=== PATIENT | female | born 1980 | race Caucasian/White ===

== ENCOUNTER 2016-04-05 00:07 | Inpatient (IN) | payer OTHER ==
[~2016-04-05] VITALS: Ht 170.2 cm; Wt 71.7 kg
[2016-04-06 01:26] VITALS: BP 144/86; PULSE 100; TEMP 98.5
[2016-04-06 03:08] LABS: INR 1.1 (0.8-3.0); PROTHROMBIN TIME 12.1 SECONDS (9.7-12.8)
[2016-04-06 03:09] LABS: BASO % 0.4 % (0.0-2.0); EOS # 0.1 (0.0-0.7); EOS % 0.9 % (0-4.0); GRAN # 7.4 (1.4-6.5); GRAN % 69.3 % (42.2-75.2); HEMATOCRIT 36.3 % (37.0-47.0); HEMOGLOBIN 11.7 g/dl (12.5-16.0); LYMPH # 2.2 (1.2-3.4); LYMPH % 20.5 % (20.0-51.0); MEAN CELL VOLUME 91 fl (80.0-100.0); MEAN CORPUSCULAR HEMOGLOBIN 29 pg (27.0-31.0); MEAN CORPUSCULAR HGB CONC 32 g/dl (33.0-37.0); MEAN PLATELET VOLUME 9.5 fl (7.4-10.4); MONO # 0.9 (0.1-0.6); MONO % 8.5 % (1.7-9.3); PLATELET COUNT 274 K/mm3 (130-400); RED BLOOD COUNT 4.01 M/mm3 (4.10-5.30); REDCELL DISTRIBUTION WIDTH-CV 13.9 % (11.5-14.5); WHITE BLOOD COUNT 10.6 K/mm3 (4.8-10.8)
[2016-04-06 03:17] LABS: ADJUSTED CALCIUM 9.3 mg/dL (8.4-10.2); BILIRUBIN,TOTAL 0.6 mg/dL (0.0-1.0); CALCIUM 9.3 mg/dL (8.4-10.2); CREATININE, serum 0.49 mg/dL (0.52-1.25); POTASSIUM 3.5 mmol/L (3.4-5.0); TOTAL PROTEIN 7.2 gm/dL (6.4-8.2)
[2016-04-06] MEDS ORDERED: SYNTHROID0.075 MG/T (03:38)
[2016-04-06] MEDS ORDERED: ZOCOR 10MG10 MG PO (03:39)
[2016-04-06] MEDS ORDERED: PROZAC40 MG PO (03:40)
[2016-04-06] MEDS ORDERED: TRESIBA FL100 UNIT/1 SQ (04:40)
[2016-04-06 06:21] VITALS: BP 134/65; PULSE 87; TEMP 98.5
[2016-04-06 09:47] VITALS: BP 130/66; PULSE 98; TEMP 98.6
[2016-04-06 13:58] VITALS: BP 125/69; PULSE 83; TEMP 98.4
[2016-04-06 17:24] VITALS: BP 128/72; PULSE 83; TEMP 98.2
[2016-04-06 21:37] VITALS: BP 134/81; PULSE 92; TEMP 97.8
[2016-04-07] VITALS (11 sets, daily range): BP systolic 107–131; BP diastolic 57–80; PULSE 83–106; TEMP 97.7–99.8
[2016-04-08 02:03] VITALS: BP 135/82; PULSE 104; TEMP 99.2
[2016-04-08 05:15] VITALS: BP 135/81; PULSE 96; TEMP 98.3
[2016-04-08 07:28] LABS: MEAN CELL VOLUME 92 fl (80.0-100.0); MEAN CORPUSCULAR HGB CONC 32 g/dl (33.0-37.0); MEAN PLATELET VOLUME 10.2 fl (7.4-10.4); PLATELET COUNT 221 K/mm3 (130-400); RED BLOOD COUNT 3.03 M/mm3 (4.10-5.30); REDCELL DISTRIBUTION WIDTH-CV 14.1 % (11.5-14.5); WHITE BLOOD COUNT 6.5 K/mm3 (4.8-10.8)
[2016-04-08 07:34] LABS: HEMATOCRIT 27.8 % (37.0-47.0); HEMOGLOBIN 8.8 g/dl (12.5-16.0); MEAN CORPUSCULAR HEMOGLOBIN 29 pg (27.0-31.0)
[2016-04-08 07:41] LABS: CALCIUM 8.7 mg/dL (8.4-10.2); CREATININE, serum 0.44 mg/dL (0.52-1.25); POTASSIUM 3.4 mmol/L (3.4-5.0)
[2016-04-08] MEDS ORDERED: NORCO 325 MG-7.1 TAB PO (12:12)
== END 2016-04-08 13:25 | disposition home or self-care (01) | DRG 494 ==
LOC: SURG 00:07
PROVIDERS: Internal Medicine; Orthopaedic Surgery
PROC: 0QSH06Z Reposition Left Tibia with Intramedullary Internal Fixation Device, Open Approach (ICD-10-PCS; principal; 2016-04-07 10:15)
DX: S82.252A Displaced comminuted fracture of shaft of left tibia, initial encounter for closed fracture (principal); S82.102A Unspecified fracture of upper end of left tibia, initial encounter for closed fracture; S82.392A Other fracture of lower end of left tibia, initial encounter for closed fracture; W18.30XA Fall on same level, unspecified, initial encounter; Y93.51 Activity, roller skating (inline) and skateboarding; E10.649 Type 1 diabetes mellitus with hypoglycemia without coma; Z79.4 Long term (current) use of insulin; Z87.891 Personal history of nicotine dependence
CPT/HCPCS: 99222; 99231-AI; 99232-AI; C1713; J0690; J1170; J1650; J1815; J1885; J2250; J2270; J2405; J2704; J7030